=== PATIENT | male | born 1970 | race Caucasian/White ===

== ENCOUNTER 2019-03-08 13:52 | Day surgery (SDC) | payer BC ==
[~2019-03-08] VITALS: Ht 175.3 cm; Wt 92.5 kg
[~2019-03-08 13:52] MED LIST: CelecoXIB 400 MG CAP PO ONE; DICL50TAB PO; LIDOCAINE 1% MDV 20ML VIAL SQ PRN; LR 1,000 ML IV ONE; NEUR300C PO; PERCOCET 5MG/325MG TAB PO ONE; SIMV20TA2 PO
[2019-03-08] MEDS ORDERED: ROCURONIUM BROMIDE 50 MG/5 ML VIAL As Ordered ONE (14:37)
[2019-03-08] MEDS ORDERED: LIDOCAINE 2% INJ 100 MG/5 ML SDV (FOR ANES.) As Ordered ONE (14:37)
[2019-03-08] MEDS ORDERED: fentaNYL 250 MCG/5 ML INJECTION (J3010) As Ordered ONE (14:37)
[2019-03-08] MEDS ORDERED: MIDAZOLAM INJ 2 MG/2 ML VIAL (J2250) As Ordered ONE ×2 (14:37→17:52)
[2019-03-08] MEDS ORDERED: PROPOFOL 200 MG/20 ML VIAL As Ordered ONE (14:37)
[2019-03-08] MEDS ORDERED: dexameTHASONE 4 MG/ML 1ML VIAL (J1100) As Ordered ONE (17:54)
[2019-03-08] MEDS ORDERED: TRANEXAMIC ACID 100 MG/ML 10ML VIAL As Ordered ONE (18:58)
[2019-03-08] MEDS ORDERED: BUPIVACAINE HCL 0.25% 30 ML VIAL As Ordered ONE (18:58)
[2019-03-08] MEDS ORDERED: THROMBIN SOLN 20,000 UNITS KIT As Ordered ONE (18:58)
[2019-03-08] MEDS ORDERED: BUPIVACAINE/EPIN 0.5% 30 ML VIAL As Ordered ONE (18:59)
[2019-03-08] MEDS ORDERED: BACITRACIN PWD 50,000 UNITS VIAL As Ordered ONE (18:59)
[2019-03-08] MEDS ORDERED: EPINEPHrine INJ 1 MG/ML 1ML AMP As Ordered ONE (18:59)
[2019-03-08] MEDS ORDERED: BUPIVACAINE LIPOSOME/PF 1.3% 20ML VIAL (13.3MG/ML)(EXPAREL)(C9290 PER1MG) As Ordered ONE (18:59)
[2019-03-08] MEDS ORDERED: ACETAMINOPHEN 1000MG 100ML IV BTL (OFIRMEV) (J0131 PER 10MG) As Ordered ONE (20:19)
[2019-03-08] MEDS ORDERED: SUGAMMADEX SODIUM 500 MG/5 ML VIAL (BRIDION) As Ordered ONE (20:44)
[2019-03-08] MEDS ORDERED: KETOROLAC 60 MG/2 ML VIAL (J1885) As Ordered ONE (20:46)
[2019-03-08] MEDS ORDERED: ONDANSETRON 4MG/2ML VIAL (J2405) As Ordered ONE (20:46)
[2019-03-08] MEDS: GABAPENTIN 300 MG CAP PO SCH (21:00)
[2019-03-08] MEDS ORDERED: LR 1,000 ML IV SCH ×2 (21:30→21:45)
[2019-03-08] MEDS ORDERED: PROMETHAZINE INJ 25 MG/ML VIAL (J2550) IV PRN (21:30)
[2019-03-08] MEDS ORDERED: CYCLOBENZAPRINE 10 MG TAB PO PRN (21:30)
[2019-03-08] MEDS ORDERED: PERCOCET 5MG/325MG TAB PO PRN ×3 (21:30→21:45)
[2019-03-08] MEDS ORDERED: fentaNYL 100 MCG/2 ML INJECTION (J3010) IV PRN (21:45)
[2019-03-08] MEDS ORDERED: MEPERIDINE INJ 25 MG/ML VIAL (J2175) IV PRN (21:45)
[2019-03-08] MEDS ORDERED: METOCLOPRAMIDE INJ 10MG/2ML VIAL (J2765) IV PRN (21:45)
[2019-03-08] MEDS ORDERED: ONDANSETRON 4MG/2ML VIAL (J2405) IV PRN (21:45)
[2019-03-08 22:30] VITALS: BP 135/79
[2019-03-08 23:00] VITALS: BP 124/75
[2019-03-08 23:30] VITALS: BP 141/79
[2019-03-09] VITALS: BP 131/75
[2019-03-09 01:30] VITALS: BP 137/77
[2019-03-09 02:40] VITALS: BP 131/75
[2019-03-09 03:30] VITALS: BP 133/77
[2019-03-09] MEDS ORDERED: PERC5TAB12 PO ×2 (06:10→06:16)
--- NOTE | 2019-03-09 07:45 | REP ---
Clinical: Localization for back surgery. Technique: Two portable intraoperative cross-table lateral views of the lumbar spine. Findings: Initial image demonstrates posterior probe at the L3-4 interspinous level. Subsequent images demonstrate posterior probe at the L4-5 interspinous level. Electronically Signed by Chang Alejandro MD 03/09/2019 07:37 A
[2019-03-09 07:47] VITALS: BP 131/71
[2019-03-09] MEDS: GABAPENTIN 300 MG CAP PO SCH (08:17)
[2019-03-09] MEDS ORDERED: METAMUCIL (PSYLLIUM) PACKET PO SCH (09:00)
[2019-03-09] MEDS ORDERED: CelecoXIB (CeleBREX) 100 MG CAP PO ONE (09:00)
--- NOTE | 2019-03-10 19:15 | RO ---
DATE OF PROCEDURE: 03/08/2019 PREOPERATIVE DIAGNOSIS: Left L4-5 disk herniation. POSTOPERATIVE DIAGNOSIS: Left L4-5 disk herniation. OPERATIVE PROCEDURE: Left L4-5 microdiskectomy. SURGEON: Barron Donnelly MD SENIOR ARCHITECT: Butch Tomas MD ANESTHESIA: General. ESTIMATED BLOOD LOSS: Less than 40 ml, replaced with crystalloid. COMPLICATIONS: None. INDICATIONS: Numbness and discomfort radiating down the left lower extremity, large disk herniation appreciated on MRI. He wants to proceed with surgery. Consent reviewed in detail including a gurjit discussion of risks and potential benefits including but not limited to pain, failure, incomplete relief, need for more surgery, nerve injury, blood clots, and other problems. The patient agreed to proceed. DESCRIPTION OF PROCEDURE: Identified in the holding area, site and side verified. Brought to the operating room. Position on the Yousif frame for exposure of the lumbar spine. I stood on the patient's left and Mr. Tomas stood on the patient's right. Next loupe magnification was utilized at first. Once he was sterilely prepped and draped we did a time-out. We outlined the incision with a marking pen and we infiltrated with quarter Marcaine with epinephrine. This was done by Mr. Aguilera. I made the incision using a #10 blade knife, developed down through skin and subcuticular tissues to the posterior lumbar fascia crossing the fibers appreciated. We reflected the posterior lumbar fascia off of the L4 spinous process and continued dissection around the L4 lamina. We obtained cross-table lateral x-rays to verify our position and adjusted accordingly and extended the incision more inferiorly. Next, we had drilled a divot in the lamina prior to the x-rays. Next, once this was accomplished we further exposed 4-5. There was significant facet arthropathy on the left side at 4-5. Next, the operating microscope was draped and brought in for the remainder of the procedure, Mr. Tomas looking through oculars on the right, I though oculars on the left side. This allowed Mr. Tomas to function as the assistant professor of economics and assist with retraction, exposure and suction. Next, left Leksell's were utilized to remove inferior lamina 4. High speed bur was utilized to implement a left unilateral laminotomy extending superiorly to the bare area of 4, undercutting slightly the spinous process, going inferiorly into the bare area of 5. Ligamentum flavum was then elevated by myself using curettes and Mr. Victoirayuliana helped to retract the ligamentum flavum. We removed the ligamentum flavum exposing the thecal sac. Next, I utilized the Catherine-Mikhail retractor to reflect the thecal sac over the disk bulge. Mr. Reeddanayranjana utilized the suction levels at this point to help expose the disk bulge. A rent was created in the annulus using #11 blade and significant disk material was retrieved from the interspace as well as from the subligamentous area consistent with a partially extruded disk herniation. This significantly decompressed the traversing nerve root. We explored the neural foramina and no additional disk material was appreciated there. We utilized bipolar cautery for hemostasis. No active bleeding or CSF leak was appreciated. We irrigated, used thrombin Gelfoam which was removed at the conclusion of the case. We anesthetized the area using Exparel solution. All retractors were removed. Posterior lumbar fascia were reapproximated with interrupted stitch, deep dermis with interrupted stitch. Pernio dressing used on skin. The patient was then able to be moved to the hospital bed, extubated, moved to recovery room in good condition moving all four extremities. Mr. Tomas was present and participated in the entirety of the case in the capacity of assistant professor of economics.
== END 2019-03-09 09:07 | disposition home or self-care (01) ==
LOC: M SDC 13:52 → M PED 22:25 → M SDC 03-09 09:07
PROVIDERS: ATTEND Orthopaedic Surgery
DX: M51.26 Other intervertebral disc displacement, lumbar region (principal); E78.00 Pure hypercholesterolemia, unspecified; Z87.442 Personal history of urinary calculi; Z79.899 Other long term (current) drug therapy
CPT/HCPCS: 36415; 63030; 76000; 86850; 86900; 86901; 88304; C1763; C9290; J0131; J0690; J1100; J1885; J2250; J2405; J3010